=== PATIENT | female | born 1940 | race Caucasian/White ===

== ENCOUNTER 2016-10-22 09:23 | Emergency (ER) | payer MEDICARE ==
[~2016-10-22] VITALS: Ht 154.9 cm; Wt 68.2 kg
[~2016-10-22 09:23] MED LIST: ALPR.25 PO; ASPI81TA82 PO; LEVO.1 PO; OMEP20TA39 PO
[2016-10-22 09:27] VITALS: BP 121/60; PULSE 59; RESP 16; TEMP 98.1; O2SAT 98
[2016-10-22] MEDS ORDERED: SYNT88TA PO (09:37)
[2016-10-22] MEDS ORDERED: CITA20TA4 PO (09:37)
--- NOTE | 2016-10-22 10:09 | PD ---
HPI Chief Complaint: Fall Time Seen by Provider: 09:48 Travel History International Travel<30 days: No Contact w/Intl Traveler<30days: No Traveled to known affect area: No History of Present Illness HPI The patient was seen and examined in the presence of the nurse. This patient complains of left-sided rib pain. This morning she fell in the bathroom trying to navigate in the darkness. She fell into the shower and landed on her left rib cage. He complains of pain. Symptoms severity is moderate. Duration 7 hours PFSH Past Medical History Arthritis: Yes Depression: Yes Cancer: Yes (SKIN) Cardiac Catheterization: Yes Cardiovascular Problems: Yes Diabetes: No Diminished Hearing: Yes (kake hearing aids) Endocrine: No Gastrointestinal Disorders: Yes (reflux) Glaucoma: No Genitourinary: No Hepatitis: No Hiatal Hernia: No Hypertension: No Immune Disorder: No Medical other: Yes (ARTHRITIS) Musculoskeletal: No Neurologic: No Psychiatric: No Respiratory: No Migraines: Yes Thyroid Disease: Yes Tetanus Vaccination: > 5 Years Influenza Vaccination: No ?: Not Menopausal: Yes : 5 Para: 5 Miscarriage: 0 : 0 Past Surgical History Body Medical Devices: pins in elbow Eye Surgery: Yes (CATARACT EXTRACTION LEFT EYE) Gynecologic Surgery: Yes (HYSTERECTOMY) Hysterectomy: Yes Joint Replacement: No Pacemaker: No Other Surgery: Yes (RIGHT GREAT TOE SX) Social History Alcohol Use: Yes (1 cocktail daily) Tobacco Use: No Substance Use: No Allergies-Medications (Allergen,Severity, Reaction): Coded Allergies: Cafergot (Verified Adverse Reaction, Intermediate, Muscle tenderness, 10/22) Reported Meds & Prescriptions Reported Meds & Active Scripts Active Reported Synthroid (Levothyroxine Sodium) 88 Mcg Tab 88 Mcg PO DAILY Citalopram (Citalopram Hydrobromide) 20 Mg Tab 20 Mg PO DAILY Review of Systems General / Constitutional: No: Fever HENT: No: Headaches Cardiovascular: Positive: Chest Pain or Discomfort Respiratory: No: Cough Physical Exam Narrative RESPIRATORY: Respiratory effort unlabored, no retractions or use of accessory muscles. Breath sounds are clear and symmetric. GASTROINTESTINAL: Abdomen soft, non-tender, nondistended. Positive bowel sounds. No hepato-splenomegaly, or palpable masses. No guarding. Musculoskeletal: Abrasion near the left elbow without tenderness. Some left- sided rib tenderness but no crepitus or bruising Data Data Last Documented VS Vital Signs Date Time Temp Pulse Resp B/P Pulse Ox O2 Delivery O2 Flow Rate FiO2 10/22/16 09:27 98.1 59 16 121/60 98 Orders Chest, Single Ap (10/22/16 ) MDM Medical Decision Making Medical Screen Exam Complete: Yes Emergency Medical Condition: Yes Medical Record Reviewed: Yes Differential Diagnosis Fracture, pneumothorax, contusion Narrative Course I have reviewed the patient's electronic medical record. I reviewed her chest x-ray which shows no fracture or pneumothorax She declines pain medicine The patient was advised to follow up with their physician and return if they worsen. Diagnosis Primary Impression: Contusion of rib on left side Qualified Code: S20.212A - Contusion of rib on left side, initial encounter Additional Instructions: The patient was advised to follow up with their physician and return if they worsen. Med/Other Pt SpecificInfo: Other Disposition: 01 DISCHARGE HOME Condition: Stable Manuel Castillo MD Oct 22, 2016 10:09
--- NOTE | 2016-10-22 11:17 | RADRPT ---
EXAM DATE/TIME: 10/22/2016 10:30 [facility] COMPARISON: CHEST PA & LAT, September 19, 2015, 8:47. INDICATIONS : Left sided rib pain underneath breast. MEDICAL HISTORY : Carcinoma, squamous cell. SURGICAL HISTORY : None. ENCOUNTER: Initial ACUITY: 1 day PAIN SCORE: 10/10 LOCATION: Left chest FINDINGS: A single view of the chest demonstrates the lungs to be symmetrically aerated without evidence of mas s, infiltrate or effusion. Mild cardiomegaly. No pulmonary vascular engorgement observed. Osseous st ructures are intact. CONCLUSION: No acute disease. Mild cardiomegaly. Isaiah Fair Jr., MD on October 22, 2016 at 11:14 Board Certified Radiologist. This report was verified electronically.
== END 2016-10-22 12:00 | disposition home or self-care (01) ==
LOC: PHED 09:23
DX: S20.212A Contusion of left front wall of thorax, initial encounter (principal); W18.2XXA Fall in (into) shower or empty bathtub, initial encounter; Y93.89 Activity, other specified; Y92.002 Bathroom of unspecified non-institutional (private) residence as the place of occurrence of the external cause; H91.90 Unspecified hearing loss, unspecified ear; K21.9 Gastro-esophageal reflux disease without esophagitis; M19.90 Unspecified osteoarthritis, unspecified site
CPT/HCPCS: 71010; 99283